=== PATIENT | female | born 1980 | race Caucasian/White ===

== ENCOUNTER 2023-02-09 16:49 | Emergency (ER) | payer BC, SELFPAY ==
[2023-02-09 16:51] VITALS: BP 120/66; PULSE 121; RESP 16; TEMP 36.5; O2SAT 98; BMI 25.8
--- NOTE | 2023-02-09 17:18 | W.ED.ABDPA2 ---
HPI - Abdominal Pain General: Chief Complaint: Abdominal Pain Stated Complaint: sever lower right abdomin pain, nausia Time Seen by Provider: 02/09/23 17:04 Source: patient Mode of arrival: ambulatory Limitations: no limitations History of Present Illness: Patient presents to the emergency department today for evaluation treatment of right lower and generalized lower abdominal pains, nausea, vomiting. Patient states she noticed onset with continuation of discomfort through today. She noticed that it got worse today and her significant other pushed to have her evaluated today. Patient states her significant other was concerned about a fever yesterday but patient states they did not record using a thermometer. She admits to feeling hot and sweaty though. Patient complains of a burning and bile vomiting off-and-on but is still able to tolerate fluids and some p.o. intake. She reports regular bowel movements without bright red blood or dark tarry stools. Patient denies dysuria but states she feels like she is not fully emptying her bladder. She has chronic back pain but denies any acute change or worsening pain. No other similarly ill with any GI symptoms at home. Patient has a history of cholecystectomy and hysterectomy but still has her appendix and ovaries. She describes her pain as often sharp like a knife primarily felt in the right lower quadrant but will radiate across the lower abdomen and to the right flank as well. Review of Systems General: Reports: 10 or more systems reviewed and unremarkable except in HPI and below Physical Exam Const: COMMON NORMALS: no acute distress, patient oriented x3 and alert HENMT: COMMON NORMALS: normocephalic, atraumatic, hearing grossly normal bilaterally and moist oral mucous membranes HEAD & SCALP: normocephalic and atraumatic Eye: COMMON NORMALS: Equal, round and reactive pupils present, EOMs intact bilaterally and conjunctivae normal CONJUNCTIVA: Yes conjunctivae normal PUPIL: Yes Equal, round and reactive pupils present Neck/C-Spine: COMMON NORMALS: full ROM and no JVD Lymph: LYMPHATIC: no lymphadenopathy noted Resp: COMMON NORMALS: normal respiratory effort, No retractions, No use of accessory muscles and clear to auscultation bilaterally AUSCULTATION: clear to auscultation bilaterally Cardio: COMMON NORMALS: no JVD, regular rate and regular rhythm RATE: regular rate RHYTHM: regular rhythm GI: OTHER: Diminished bowel sounds throughout. Patient was tender to the right lower quadrant without rebound. Abdomen is soft. No right upper quadrant tenderness or epigastric tenderness on palpation. : COMMON NORMALS: Yes no CVA tenderness BLADDER/KIDNEY EXAM: Yes no CVA tenderness Back/Pelvis: COMMON NORMALS: no CVA tenderness, no thoracic nor lumbar tenderness and thoraco-lumbar ROM normal Extremity: COMMON NORMALS: normal to inspection, full ROM and capillary refill normal Neuro: COMMON NORMALS: patient oriented x3 SENSORIUM/ORIENTATION: Yes alert Psych: COMMON NORMALS: mental status grossly normal, Normal thought process present, cooperative, normal affect and activity/motor behavior normal THOUGHT PROCESS: Normal thought process present Skin: COMMON NORMALS: no rashes or lesions noted and no wounds GENERAL SKIN EXAM: no rashes or lesions noted Course Vital Signs: Vital signs: Vital Signs Temperature 97.7 F 02/09/23 20:40 Pulse Rate 89 02/09/23 20:40 Respiratory Rate 16 02/09/23 20:40 Blood Pressure 121/81 02/09/23 20:40 Pulse Oximetry 98 02/09/23 20:40 Oxygen Delivery Me thod Room Air 02/09/23 16:51 MDM - Abdominal Pain Medical Decision Making Patient's lab work was generally unremarkable. She had no signs of an elevated white blood cell count or anemia. Patient did have a minimal elevation in inflammatory markers but did have a slightly lower GFR. Patient was treated with Toradol and antinausea medication in addition to fluids while we discussed imaging. We did proceed on with CT scan of the abdomen to rule out appendicitis however, on my initial interpretation of her scans, she was found to have bilateral renal stones. Patient indicated she was unaware of this finding and states she has never passed a kidney stone before. Upon further evaluation, it appears to me on her coronal view at cut 25 as well as her transverse view cut 60 that there is a right ureteral stone present. I spoke with Dr. Arevalo who also reviewed these images and was suspicious of active stone disease-especially given what appears to be swelling of the renal pelvis on the right side. We did discuss our suspicion for kidney stone here in the emergency department. Patient is from out of town but states she has a urologist that her father uses that she would be happy to follow-up with. We discussed having her medical records sent to that office for them to review. Patient was also given medication to help with passing of the kidney stone and to help with pain during that time. I do expect the stone to be able to be passed and she was provided a strainer in an effort to try and catch the passing stone. She should take it to her urology follow-up if she is able to catch it. Informational handouts about kidney stones and ureteral stones provided to the patient for at home reference. Patient verbalized understanding and agreement to treatment plan. Differential Diagnosis Likely abdominal pain and calculus of kidney; Unlikely acute appendicitis, constipation, diverticulitis, endometriosis, gastroenteritis, pancreatitis or small bowel obstruction Lab Data 02/09/23 17:28 02/09/23 17:28 Labs/Radiology: Radiology Impressions Abdomen/Pelvis CT 02/09/23 18:16 IMPRESSION: 1. No bowel obstruction or inflammatory process associated with the bowel. 2. No free air or significant free fluid in the abdomen or pelvis. 3. The appendix images normally. Laboratory Results WBC 9.16 10^3/uL (3.29-11.43) 02/09/23 17: RBC 4.75 10^6/uL (3.85-5.65) 02/09/23 17:28 Hgb 14.70 g/dL (11.27-16.99) 02/09/23 17:28 Hct 43.6 % (36-47) 02/09/23 17: MCV 91.8 fl (85-98) 02/09/23 17:28 MCH 30.9 pg (27-33) 02/09/23 17:28 MCHC 33.7 g/dL (30-55) 02/09/23 17: RDW 13.0 % (12.1-15.1) 02/09/23 17:28 Plt Count 304 10^3/cmm (157-399) 02/09/23 17:28 MPV 9.5 fL (7.4-10.4) 02/09/23 17: Neut % (Auto) 70.5 % 02/09/23 17: Lymph % (Auto) 19.3 % 02/09/23 17:28 Woods % (Auto) 7.4 % 02/09/23 17: Eos % (Auto) 2.1 % 02/09/23 17: Baso % (Auto) 0.5 % 02/09/23 17:28 Neut # (Auto) 6.45 10^3/uL (1.8-7.7) 02/09/23 17:28 Lymph # (Auto) 1.8 10^3/uL (0.8-4.8) 02/09/23 17:28 Woods # (Auto) 0.7 10^3/uL (0.2-0.9) 02/09/23 17:28 Eos # (Auto) 0.2 10^3/uL (0.0-0.8) 02/09/23 17:28 Baso # (Auto) 0.1 10^3/uL (0.0-0.1) 02/09/23 17: Nucleated RBC % (auto) 0 % 02/09/23 17: Nucleated RBCs # 0.0 /100WBC 02/09/23 17:28 Sodium 142 mmol/L (136-145) 02/09/23 17:28 Potassium 3.7 mmol/L (3.5-5.1) 02/09/23 17: Chloride 105 mmol/L (98-107) 02/09/23 17:28 Carbon Dioxide 27 mmol/L (22-29) 02/09/23 17:28 Anion Gap 13.7 (5-19) 02/09/23 17:28 BUN 13 mg/dL (6-20) 02/09/23 17:28 Creatinine 0.8 mg/dL (0.5-0.9) 02/09/23 17:28 GFR Calculation 78.7 mL/min (90-130) L 02/09/23 17:28 Glucose 92 mg/dL (65-115) 02/09/23 17:28 Calculated Osmolality 294 mOsm/kg (285-295) 02/09/23 17:28 Calcium 9.4 mg/dL (8.5-10.5) 02/09/23 17:28 Total Bilirubin 0.4 mg/dL (0.15-1.2) 02/09/23 17:28 AST 12 U/L (0-32) 02/09/23 17:28 ALT 9 U/L (0-33) 02/09/23 17:28 Alkaline Phosphatase 69 U/L (35-105) 02/09/23 17:28 C-Reactive Protein 6.4 mg/L (0.0-4.9) H 02/09/23 17:28 Total Protein 7.1 g/dL (6.6-8.7) 02/09/23 17:28 Albumin 4.1 g/dL (3.5-5.2) 02/09/23 17:28 Globulin 3.0 g/dL (1.3-4.6) 02/09/23 17:28 Lipase 22 U/L (13-60) 02/09/23 17:28 HCG, Qual Negative (Negative) 02/09/23 17:28 Urine Color Yellow (Yellow) 02/09/23 17:36 Urine Appearance Clear (CLEAR) 02/09/23 17:36 Urine pH 5 (5-7) 02/09/23 17:36 Ur Specific [place] 1.025 (1.005-1.030) 02/09/23 17:36 Urine Protein Neg (Negative) 02/09/23 17:36 Urine Glucose (UA) Norm (Normal) 02/09/23 17:36 Urine Ketones 1+ (Negative) H 02/09/23 17:36 Urine Blood 2+ (Negative) H 02/09/23 17:36 Urine Nitrate Negative (Negative) 02/09/23 17:36 Urine Bilirubin Neg (Negative) 02/09/23 17:36 Urine Urobilinogen Norm mg/dL (Negative) 02/09/23 17:36 Ur Leukocyte Esterase Negative (Negative) 02/09/23 17:36 Urine RBC 5-10 /hpf (0-2) H 02/09/23 17:36 Urine WBC 0-4 /hpf (0-5) H 02/09/23 17:36 Ur Squamous Epith Cells 0-4 /hpf (0-5) H 02/09/23 17:36 Amorphous Sediment 1+ /hpf 02/09/23 17:36 Urine Bacteria Trace /hpf (NONE) 02/09/23 17:36 All radiology interpretation(s) finalized by discharge Discharge Plan Discharge Patient Disposition: Home Clinical Impression: Right ureteral calculus, Bilateral renal stones, Abdominal pain, RLQ Condition: Stable Prescriptions: New Flomax 0.4 mg capsule 0.4 mg PO DAILY Qty: 7 0RF ondansetron 4 mg tablet,disintegrating 4 mg PO Q8H 5 Days Qty: 15 0RF ketorolac 10 mg tablet 10 mg PO Q8H PRN (Reason: pain) 5 Days Qty: 15 0RF Discharge Orders: Discharge ED (Routine); Ordered 02/09/23 Ordered By: Jennifer Pittman Discharge Diet: Usual diet Discharge Activity: Increase activity as tolerated Patient Instructions: Kidney Stones (ED), Ureteral Stones (ED) Activity Restrictions/Additional Instructions: Labs today are generally unremarkable. Your urinalysis showed some blood but, based on your scan I do believe you are experiencing symptoms of kidney stones. You have multiple stones in both your right and left kidneys but, stones inside the kidney do not cause pain. It is not until they tried to pass through the ureter the pain will develop. You have findings of a stone in your right mid to distal ureter-having not made it to the bladder yet. 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 However, we are providing you a strainer and would like you to try and collect your stone as a urologist can test it to determine what type of kidney stones you most likely have. As you are from out of town, we recommend you reach out to a urologist as you do have multiple kidney stones still in the kidneys with a high likelihood of attempting to pass these at some point. We would like you to have the availability to see a urologist should this occur. We have provided you a medical record release form so your preferred urologist can have these records from today. Coding Level of Care Code ED Maintenance Truck Driver for Felisha Estrella
[2023-02-09] MEDS: ketorolac 30 mg/mL INJ IVP (17:34)
[2023-02-09] MEDS: metoclopramide 5 mg/mL SDV 2 mL 10 MG IVP (17:34)
[2023-02-09] MEDS: sodium chloride 0.9% 1,000 ML 999 ML IV (17:34)
[2023-02-09 17:45] VITALS: BP 115/89; PULSE 91; RESP 16; O2SAT 98
[2023-02-09 17:51] LABS: Basophils # 0.1 10^3/uL (0.0-0.1); Basophils % 0.5 %; Eosinophils # 0.2 10^3/uL (0.0-0.8); Eosinophils % 2.1 %; Hematocrit 43.6 % (36-47); Lymphocytes # 1.8 10^3/uL (0.8-4.8); Lymphocytes % 19.3 %; Mean Corpuscular HGB Conc 33.7 g/dL (30-55); Mean Corpuscular Hemoglobin 30.9 pg (27-33); Mean Corpuscular Volume 91.8 fl (85-98); Mean Platelet Volume 9.5 fL (7.4-10.4); Monocytes # 0.7 10^3/uL (0.2-0.9); Monocytes % 7.4 %; Neutrophils # 6.45 10^3/uL (1.8-7.7); Neutrophils % 70.5 %; Nucleated Red Blood Cells % 0 %; Platelet Count 304 10^3/cmm (157-399); Red Blood Count 4.75 10^6/uL (3.85-5.65); White Blood Count 9.16 10^3/uL (3.29-11.43)
[2023-02-09 18:04] LABS: HCG, Serum Qual Negative (Negative)
[2023-02-09 18:11] LABS: Alanine Aminotransferase 9 U/L (0-33); Albumin Level 4.1 g/dL (3.5-5.2); Alkaline Phosphatase 69 U/L (35-105); Anion Gap 13.7 (5-19); Aspartate Amino Transferase 12 U/L (0-32); Blood Urea Nitrogen 13 mg/dL (6-20); C Reactive Protein 6.4 mg/L (0.0-4.9); Calcium 9.4 mg/dL (8.5-10.5); Carbon Dioxide 27 mmol/L (22-29); Chloride 105 mmol/L (98-107); Glomerular Filtration Rate 78.7 mL/min (90-130); Glucose 92 mg/dL (65-115); Lipase 22 U/L (13-60); Osmolality Calculated 294 mOsm/kg (285-295); Potassium 3.7 mmol/L (3.5-5.1); Sodium 142 mmol/L (136-145); Total Bilirubin 0.4 mg/dL (0.15-1.2); Total Protein 7.1 g/dL (6.6-8.7)
--- NOTE | 2023-02-09 18:16 | CTR_ITS ---
PROCEDURE INFORMATION: Exam: CT Abdomen And Pelvis With Contrast Exam date and time: 02/09/2023 6:31 PM Age: 42 years old Clinical indication: Abdominal pain; Localized; Right lower quadrant (rlq); Prior surgery; Surgery date: 6+ months; Surgery type: Shakila, partial hyst; Additional info: Rlq pain, n/v TECHNIQUE: Imaging protocol: Computed tomography of the abdomen and pelvis with contrast. Radiation optimization: All CT scans at this facility use at least one of these dose optimization techniques: automated exposure control; mA and/or kV adjustment per patient size (includes targeted exams where dose is matched to clinical indication); or iterative reconstruction. Contrast material: OMNI 350; Contrast volume: 100 ml; Contrast route: INTRAVENOUS (IV); REPORTING DATA: Count of CT and Cardiac NM exams in prior 12 months: This patient has received 0 known CTs and 0 known cardiac nuclear medicine studies in the 12 months prior to the current study. COMPARISON: No relevant prior studies available. RADIATION DOSE METRICS: Total DLP (mGy-cm): 601 FINDINGS: Liver: Normal. No mass. Gallbladder and bile ducts: The gallbladder is absent. Pancreas: Normal. No ductal dilation. Spleen: Normal. No splenomegaly. Adrenal glands: Normal. No mass. Kidneys and ureters: Multiple nonobstructing stones in the right kidney measuring up to 4 mm in the left kidney measuring up to 5 mm. Stomach and bowel: Unremarkable. No obstruction. No mucosal thickening. Appendix: No evidence of appendicitis. Intraperitoneal space: Unremarkable. No free air. No significant fluid collection. Vasculature: Unremarkable. No abdominal aortic aneurysm. Lymph nodes: Unremarkable. No enlarged lymph nodes. Urinary bladder: Unremarkable as visualized. Reproductive: Unremarkable as visualized. Bones/joints: Severe compression fracture of the L1 vertebral body, age indeterminate. There is posterior displacement of the superior posterior wall into the spinal canal by 7 mm. Soft tissues: Unremarkable. CT/CT abdomen pelvis w con* [id number] IMPRESSION: 1. No bowel obstruction or inflammatory process associated with the bowel. 2. No free air or significant free fluid in the abdomen or pelvis. 3. The appendix images normally.
[2023-02-09] MEDS: iohexol 350 mg/mL 500 mL Btl (per mL) IV (18:24)
[2023-02-09 18:26] VITALS: PULSE 107; RESP 16; O2SAT 100
[2023-02-09 18:52] LABS: Protein Urine Neg (Negative); Specific Gravity, Urine 1.025 (1.005-1.030); Urine Appearance Clear (CLEAR); Urine Color Yellow (Yellow); pH Urine 5 (5-7)
[2023-02-09 18:53] LABS: Add Urine Culture? No; Add Urine Microscopic? YES; Amorphous Sediment Urine 1+ /hpf; Bacteria Urine TRACE /hpf; Bilirubin Urine Neg (Negative); Blood Urine 2+ (Negative); Glucose Urine UA Norm (Normal); Ketones Urine 1+ (Negative); Leukocyte Esterase Urine Negative (Negative); Nitrate Urine Negative (Negative); Squamous Epithelial Cell Urine 0-4 /hpf (0-5); Urobilinogen Urine Norm (Negative); WBC Urine 0-4 /hpf (0-5)
[2023-02-09 20:05] VITALS: BP 121/81; PULSE 89; RESP 16; O2SAT 98
[2023-02-09] MEDS: tamsulosin 0.4 mg Capsule PO (20:34)
[2023-02-09 20:40] VITALS: BP 121/81; PULSE 89; RESP 16; TEMP 36.5; O2SAT 98
== END 2023-02-09 20:43 | disposition home or self-care (01) ==
PROVIDERS: Emergency Medicine; Emergency Provider Physician Assistant
DX: N20.2 Calculus of kidney with calculus of ureter (principal)
CPT/HCPCS: 74177; 80053; 81001; 83690; 84703; 85025; 86140; 96361; 96374; 96375; 99285; J1885; J2765; J7030; Q9967